=== PATIENT | male | born 1970 | race Caucasian/White ===

== ENCOUNTER 2019-05-14 17:48 | Emergency (ER) | payer BC ==
[2019-05-14 17:52] VITALS: TEMP 98.3
[2019-05-14] MEDS ORDERED: SODIUM CHLORIDE 0.9% 1,000 ML IV ONE (17:55)
--- NOTE | 2019-05-14 17:56 | ED ---
Abdominal Pain HPI - General Chief Complaint: Abdominal Pain Stated Complaint: abdominal pain Time Seen by Provider: 05/14/19 17:53 Source: patient Mode of arrival: ambulatory Limitations: no limitations - History of Present Illness Initial Comments: 48-year-old male presenting today for chief complaint of right-sided abdominal pain. Patient states his right lower quadrant abdominal pain. Patient states that he was sent by his primary care provider for rule out of appendicitis. He states the pain has been sharp ongoing for the past 2-3 days. Patient denies a diarrhea. He states he has had occasional vomiting. Patient denies hematemesis, melena hematochezia. Patient denies fevers. Patient denies hematuira, dysuria, back pain, chest pain, shortness of breath. Remaining ROS (- ). Upon arrival patient appears well, no signs of acute distress. - Related Data Home Medications Medication Instructions Recorded Confirmed Obokzhm-Hudk-Yeoy [id number] 1 tab PO Q4HR PRN 05/14/19 05/14/19 [Excedrin] SUMAtriptan SUCCINATE [Imitrex] 50 mg PO BID PRN 05/14/19 05/14/19 traMADol HCL [Ultram] 50 - 100 mg PO Q6H PRN 05/14/19 05/14/19 Allergies Allergy/AdvReac Type Severity Reaction Status Date / Time No Known Allergies Allergy Verified 05/14/19 18:01 Review of Systems ROS Statement: Those systems with pertinent positive or pertinent negative responses have been documented in the HPI. ROS Other: All systems not noted in ROS Statement are negative. Past Medical History Past Medical History: No Reported History Additional Past Medical History / Comment(s): migraines History of Any Multi-Drug Resistant Organisms: None Reported Past Surgical History: No Surgical Hx Reported Past Psychological History: No Psychological Hx Reported Smoking Status: Never smoker Past Alcohol Use History: None Reported Past Drug Use History: None Reported General Exam - General Exam Comments Initial Comments: General: The patient is awake and alert, in no distress, and does not appear acutely ill. Eye: +3 mm pupils are equal, round and reactive to light, extra-ocular movements are intact. No nystagmus. There is normal conjunctiva bilaterally. No signs of icterus. Ears, nose, mouth and throat: There are moist mucous membranes and no oral lesions. Neck: The neck is supple, there is no tenderness or JVD. Cardiovascular: There is a regular rate and rhythm. No murmur, rub or gallop is appreciated. Respiratory: Lungs are clear to auscultation, respirations are non-labored, breath sounds are equal. No wheezes, stridor, rales, or rhonchi. Gastrointestinal: Soft, non-distended, tender to palpation of the RLQ, without masses or organomegaly noted. There is no rebound or guarding present. No CVA tenderness. Bowel sounds are unremarkable. Musculoskeletal: Normal ROM, no tenderness. Strength 5/5. Sensation intact. radial and DP pulses equal bilaterally 2+. Neurological: A&O x 3. CN II-XII intact, There are no obvious motor or sensory deficits. Coordination appears grossly intact. Speech is normal. Skin: Skin is warm and dry and no rashes or lesions are noted. Psychiatric: Cooperative, appropriate mood & affect, normal judgment. Limitations: no limitations Course Vital Signs 05/14/19 17:50 Temperature 98.3 F Pulse Rate 75 Respiratory 18 Rate Blood Pressure 128/78 O2 Sat by Pulse 100 Oximetry Medical Decision Making - Medical Decision Making 48-year-old male presented for right lower quadrant abdominal pain he presented to his primary care provider for evaluation who sent him to emergency department for rule out sinusitis. Patient has no leukocytosis. Patient is tender to palpation of the right lower quadrant where there is no rebound or guarding. Patient has no fever. Patient has normal transaminases as well as alk phosphatase. No elevation of lipase. Patient is no upper abdominal tenderness. Patient has not vomited emergency department. Denies diarrhea. Patient's vital signs within normal limits. Normal neurovascular exam. CT of the abdomen was obtained to rule out appendicitis there is no evidence of acute intra- abdominal process. Urinalysis unremarkable. At this time I do feel patient is stable for discharge, with primary care follow-up. If symptoms persisted did recommend return to the emergency department. I did recommend patient obtain a colonoscopy. I discuss the case withy my attending provider, Dr. Purvis who is agreeable with discharge of patient at this time, he reviewed laboratory studies. - Lab Data Result diagrams: 05/14/19 18:00 05/14/19 18:00 Lab Results 05/14/19 05/14/19 05/14/19 Range/Units 18:00 18:00 18:00 WBC 5.7 (3.8-10.6) k/uL RBC 4.23 L (4.30-5.90) m/uL Hgb 13.0 (13.0-17.5) gm/dL Hct 40.0 (39.0-53.0) % MCV 94.5 (80.0-100.0) fL MCH 30.6 (25.0-35.0) pg MCHC 32.4 (31.0-37.0) g/dL RDW 12.0 (11.5-15.5) % Plt Count 326 (150-450) k/uL Neutrophils % 60 % Lymphocytes % 29 % Monocytes % 5 % Eosinophils % 3 % Basophils % 1 % Neutrophils # 3.4 (1.3-7.7) k/uL Lymphocytes # 1.7 (1.0-4.8) k/uL Monocytes # 0.3 (0-1.0) k/uL Eosinophils # 0.2 (0-0.7) k/uL Basophils # 0.0 (0-0.2) k/uL Sodium 141 (137-145) mmol/L Potassium 4.3 (3.5-5.1) mmol/L Chloride 107 (98-107) mmol/L Carbon Dioxide 24 (22-30) mmol/L Anion Gap 10 mmol/L BUN 20 (9-20) mg/dL Creatinine 1.07 (0.66-1.25) mg/dL Est GFR (CKD-EPI)AfAm >90 (>60 ml/min/1.73 sqM) Est GFR (CKD-EPI)NonAf 82 (>60 ml/min/1.73 sqM) Glucose 84 (74-99) mg/dL Calcium 9.7 (8.4-10.2) mg/dL Total Bilirubin 0.7 (0.2-1.3) mg/dL AST 42 (17-59) U/L ALT 33 (21-72) U/L Alkaline Phosphatase 82 (38-126) U/L Total Protein 7.2 (6.3-8.2) g/dL Albumin 4.5 (3.5-5.0) g/dL Amylase 79 (30-110) U/L Lipase 49 (23-300) U/L Urine Color Yellow Urine Appearance Clear (Clear) Urine pH 5.5 (5.0-8.0) Ur Specific [place] 1.033 (1.001-1.035) Urine Protein Trace H (Negative) Urine Glucose (UA) Negative (Negative) Urine Ketones 1+ H (Negative) Urine Blood Negative (Negative) Urine Nitrite Negative (Negative) Urine Bilirubin Negative (Negative) Urine Urobilinogen <2.0 (<2.0) mg/dL Ur Leukocyte Esterase Negative (Negative) Disposition Clinical Impression: Abdominal pain Disposition: HOME SELF-CARE Condition: Good Instructions (If sedation given, give patient instructions): Abdominal Pain (ED) Additional Instructions: Please use medication as discussed. Please follow-up with family doctor in the next 2 days. If symptoms persist please seek GI evaluation I recommend colonoscopy. Please return to emergency room if the symptoms increase or worsen or for any other concerns. Is patient prescribed a controlled substance at d/c from ED?: No Referrals: Lopez Alan MD [Primary Care Provider] - 1-2 days Time of Disposition: 19:52
[2019-05-14 18:27] LABS: Basophils % (A) 1 %; Eosinophils # (A) 0.2 k/uL (0-0.7); Eosinophils % (A) 3 %; Lymphocytes # (A) 1.7 k/uL (1.0-4.8); Lymphocytes % (A) 29 %; MCH 30.6 pg (25.0-35.0); MCHC 32.4 g/dL (31.0-37.0); MCV 94.5 fL (80.0-100.0); Mean Platelet Volume 6.6; Monocytes # (A) 0.3 k/uL (0-1.0); Monocytes % (A) 5 %; Neutrophils # (A) 3.4 k/uL (1.3-7.7); Neutrophils % (A) 60 %; Platelet Count 326 k/uL (150-450); RBC 4.23 m/uL (4.30-5.90); WBC 5.7 k/uL (3.8-10.6)
[2019-05-14 18:34] LABS: ALT 33 U/L (21-72); AST 42 U/L (17-59); African American GFR (CKD) >90 (>60 ml/min/1.73 sqM); Albumin 4.5 g/dL (3.5-5.0); Alkaline Phosphatase 82 U/L (38-126); Amylase 79 U/L (30-110); Anion Gap 10 mmol/L; Blood Urea Nitrogen 20 mg/dL (9-20); Calcium 9.7 mg/dL (8.4-10.2); Carbon Dioxide 24 mmol/L (22-30); Chloride 107 mmol/L (98-107); Glucose 84 mg/dL (74-99); Lipase 49 U/L (23-300); Potassium 4.3 mmol/L (3.5-5.1); Sodium 141 mmol/L (137-145); Total Bilirubin 0.7 mg/dL (0.2-1.3); Total Protein 7.2 g/dL (6.3-8.2)
[2019-05-14 18:37] LABS: Appearance,Urine Clear (Clear); Bilirubin,Urine Negative (Negative); Blood,Urine Negative (Negative); Color,Urine Yellow; Glucose,Urine (UA) Negative (Negative); Ketones,Urine 1+ (Negative); Leukocyte Esterase,Urine Negative (Negative); Nitrite,Urine Negative (Negative); PH, Urine 5.5 (5.0-8.0); Protein,Urine Trace (Negative); Specific Gravity,Urine 1.033 (1.001-1.035); Urobilinogen,Urine <2.0 mg/dL (<2.0)
--- NOTE | 2019-05-14 19:09 | CT ---
EXAMINATION TYPE: CT abdomen pelvis w con DATE OF EXAM: 05/14/2019 COMPARISON: None HISTORY: Right side abdominal pain x2 days CT DLP: 581.9 mGycm Automated exposure control for dose reduction was used. TECHNIQUE: Helical acquisition of images was performed from the lung bases through the pelvis. CONTRAST: Performed without Oral Contrast and with IV Contrast, patient injected with 100 mL of Isovue 300. FINDINGS: Lung bases are clear. There is no pleural effusion. Heart size is normal. There is no pericardial eff usion. There is a small hiatal hernia. Stomach is otherwise normal. Liver and spleen appear normal. B ile ducts are not dilated. There is no evidence of pancreatic mass. Gallbladder appears normal. There is no adrenal mass. Kidneys show satisfactory contrast opacification. There is no hydronephrosi s. Ureters are not dilated. There is no retroperitoneal adenopathy. Bladder distends smoothly. There is no evidence of a pelvic mass. There is no ascites or free air. There is no inguinal hernia. There is no mesenteric edema. There is no sign of a bowel obstruction. The appendix is inferior and a ppears normal. There is no sign of appendicitis. There are spondylotic changes in the lumbar spine. There is no compression fracture. There is posteri or disc herniation and endplate spur formation at L3-4 L4-5. There is a minimal L3-4 spinal stenosis. IMPRESSION: NO SIGN OF ACUTE ABDOMEN AND PELVIS. NORMAL APPENDIX. SPONDYLOTIC CHANGES IN THE LUMBAR SPINE.
[2019-05-14 20:09] VITALS: BP 122/81; PULSE 86; RESP 16
== END 2019-05-14 20:09 | disposition home or self-care (01) ==
LOC: EC 17:48
DX: R10.31 Right lower quadrant pain (principal); R11.10 Vomiting, unspecified; Z86.69 Personal history of other diseases of the nervous system and sense organs
CPT/HCPCS: 36415; 80053; 82150; 83690; 85025; 81003; 74177; 99284; 96360; Q9967